=== PATIENT | female | born 1945 | race Caucasian/White ===

== ENCOUNTER 2019-01-20 14:56 | Emergency (ER) | payer OTHER, MEDICAID ==
[~2019-01-20] VITALS: Ht 167.6 cm; Wt 84.8 kg
[2019-01-20 14:57] VITALS: BP 188/91
--- NOTE | 2019-01-20 15:00 | NUR ---
BIB EMS. AAO X4. PT C/O R SHOULDER PAIN 07/10 ACHING, NONRADIATING X 30 DAYS S/P OVERUSE WITH GETTING INTO AND OUT OF WHEELCHAIR. NO OBVIOUS DEFORMITY NOTED. EQUAL BRE STRENGTH TO UPPPER EXREMITIES. CAP REFILL LESS THAN 3 SECS. ABLE TO MOVE FINGERS TO R HAND AND R ARM. HOB UP. BED SIDE RAILS UP X2. ON LOW BED POSITION, LOCKED. ER MADE AWARE OF PT STATUS.
--- NOTE | 2019-01-20 15:00 | NUR ---
PT BIBA BLS TO BED 10
--- NOTE | 2019-01-20 15:08 | NUR ---
REPORT WRITER AT BEDSIDE
[2019-01-20] MEDS ORDERED: fentaNYL 0.05 MG/ML VIAL NS ONE (15:25)
--- NOTE | 2019-01-20 17:00 | NUR ---
REPORT FROM KELSEY HOLLIS AT THIS TIME, TRANSFER OF CARE.
--- NOTE | 2019-01-20 18:44 | NUR ---
PATIENT EATING DINNER
[2019-01-20 21:11] VITALS: BP 120/72
--- NOTE | 2019-01-20 21:11 | NUR ---
Patient discharged with v/s stable. Written and verbal after care instructions given and explained. Patient alert, oriented and verbalized understanding of instructions. Ambulatory with steady gait. All questions addressed prior to discharge. ID band removed. Patient advised to follow up with PMD. Rx of LIDODERM AND TYLENOL given. Patient educated on indication of medication including possible reaction and side effects. Opportunity to ask questions provided and answered. REPORT CALLED TO ABIMBOLA RAPP AT THIS TIME.
== END 2019-01-20 21:11 ==
LOC: MED 14:56
DX: S43.101A Unspecified dislocation of right acromioclavicular joint, initial encounter (principal); E21.3 Hyperparathyroidism, unspecified; Z88.5 Allergy status to narcotic agent; Z88.6 Allergy status to analgesic agent; Z88.8 Allergy status to other drugs, medicaments and biological substances; Z98.890 Other specified postprocedural states; X58.XXXA Exposure to other specified factors, initial encounter; Y93.89 Activity, other specified; Y92.89 Other specified places as the place of occurrence of the external cause; Y99.8 Other external cause status
CPT/HCPCS: 73030; 99283; J3010; Q0092

== ENCOUNTER 2019-01-30 00:27 | Emergency (ER) | payer OTHER, MEDICAID ==
[~2019-01-30] VITALS: Ht 167.6 cm; Wt 84.8 kg
[2019-01-30 00:27] VITALS: BP 159/103
--- NOTE | 2019-01-30 00:27 | NUR ---
SUNDAY ALS TO ER BED 4
--- NOTE | 2019-01-30 00:27 | NUR ---
[facility] EMS FROM [facility] FOR RIGHT FOOT PAIN. MULTIPLE DIABET ULCERS OVER RIGHT DIGITS, LATERAL SIDE, AND UNSTAGEABLE ULCUSE WITH ESCHAR OVER HEEL. SEVERE 10/10 PAIN. TACHY AT 115. AFEBRILE. TRANSFERED FROM [facility] TO BED BY EMS AND NURSING STAFF. A&OX4 Addendum: 01/30/19 at 0322 by DERIC [facility] EMS FROM [facility] FOR RIGHT FOOT PAIN. MULTIPLE DIABET ULCERS OVER RIGHT DIGITS, LATERAL SIDE, AND UNSTAGEABLE ULCERS WITH ESCHAR OVER HEEL. SEVERE 10/10 PAIN. TACHY AT 115. AFEBRILE. TRANSFERED FROM [facility] TO BED BY EMS AND NURSING STAFF. A&OX4
--- NOTE | 2019-01-30 00:35 | NUR ---
Patient being evaluated by physician at bedside.
[2019-01-30] MEDS ORDERED: traMADol 50 MG TAB PO ONE ×2 (00:45→01:25)
[2019-01-30] MEDS ORDERED: CLINDAMYCIN 150 MG CAP PO ONE (00:45)
[2019-01-30] MEDS ORDERED: SULFAMETH/TRIMETH DS 800/160MG 1 TAB PO ONE (00:45)
--- NOTE | 2019-01-30 00:45 | NUR ---
73 YO F BIB EMS FROM [facility] FOR RIGHT FOOT PAIN. MULTIPLE DIABETIC ULCERS OVER RIGHT DIGITS, LATERAL SIDE, AND UNSTAGEABLE ULCER WITH ESCHAR OVER HEEL. SEVERE 10/10 PAIN. TACHY AT 115. AFEBRILE. TRANSFERED FROM [facility] TO BED BY EMS AND NURSING STAFF. -- PT APPEARS TO BE IN SEVERE PAIN. FACIAL GRIMACING. MOANING. COOPERATIVE. RESPONDS TO QUESTIONS APPROPRIATELY. HX: CVA, X2 STENTS, CATARACTS, DMII, HTN
--- NOTE | 2019-01-30 01:00 | NUR ---
TRAMADOL 100 MG PO GIVEN FOR 10/10 PAIN.
[2019-01-30 01:05] LABS: BASOPHILS % (AUTO) 0.5 % (0.0-2.0); EOSINOPHILS # (AUTO) 0.1 K/uL (0-0.4); EOSINOPHILS % (AUTO) 0.6 % (0.0-4.0); HEMATOCRIT 38.1 % (36-48); HEMOGLOBIN 12.7 g/dL (12.0-16.0); LYMPHOCYTES # (AUTO) 1.4 K/uL (2.5-16.5); LYMPHOCYTES % (AUTO) 16.4 % (20.5-51.1); MEAN CORPUSCULAR HEMOGLOBIN 30 pg (27-31); MEAN CORPUSCULAR HGB CONC 33 g/dL (33-37); MEAN CORPUSCULAR VOLUME 89.4 fL (80-94); MONOCYTES # (AUTO) 0.8 K/uL (0.8-1.0); MONOCYTES % (AUTO) 9.2 % (1.7-9.3); NEUTROPHILS # (AUTO) 6.5 K/uL (1.8-7.7); NEUTROPHILS % (AUTO) 73.3 % (42.2-75.2); PLATELET COUNT (AUTO) 182 K/uL (140-450); RED BLOOD CELL COUNT(AUTO) 4.26 MIL/uL (4.20-5.40); RED CELL DISTRIBUTION WIDTH 13.7 % (11.6-13.7); WHITE BLOOD COUNT (AUTO) 8.8 K/uL (4.8-10.8)
[2019-01-30 01:31] LABS: APPEARANCE,URINE CLEAR (CLEAR); BILIRUBIN,URINE NEGATIVE (NEGATIVE); BLOOD, URINE NEGATIVE (NEGATIVE); COLOR,URINE YELLOW (YELLOW); LEUKOCYTE ESTERASE ,URINE NEGATIVE (NEGATIVE); NITRITE, URINE NEGATIVE (NEGATIVE); UGLUCOSE 3+ (NEGATIVE)
[2019-01-30 01:32] LABS: ALBUMIN 2.7 g/dL (3.4-5.0); ANION GAP 13.6 (8-16); ASPARTATE AMINOTRANSFERASE 17 U/L (15-37); CARBON DIOXIDE 25.5 mmol/L (21-32); CHLORIDE 97 mmol/L (98-107); CREATININE 1.4 mg/dL (0.6-1.3); POTASSIUM 5.1 mmol/L (3.5-5.1); SODIUM SERUM 131 mmol/L (136-145); TOTAL BILIRUBIN 0.2 mg/dL (0.0-1.0); UREA NITROGEN, BLOOD 45 mg/dL (7-18)
[2019-01-30 01:36] LABS: GLUCOSE 445 mg/dL (74-106)
[2019-01-30] MEDS ORDERED: INSULIN NPH HUMAN ISOPHANE 100 UNIT/ML VIAL SUBQ ONE ×2 (01:40→02:40)
[2019-01-30 01:53] LABS: RBC,URINE 0-5 /HPF (0-5); WBC,URINE 0-5 /HPF (0-5)
[2019-01-30] MEDS ORDERED: fentaNYL 0.05 MG/ML VIAL IVP ONE (02:40)
[2019-01-30] MEDS ORDERED: NACL 0.9% 1,000 ML IV ONE (02:40)
--- NOTE | 2019-01-30 03:00 | NUR ---
TRAMADOL SEMI-EFFECTIVE. PT C/O 05/10 PAIN. 0.05 MG FENTANYL IVP GIVEN.
--- NOTE | 2019-01-30 04:00 | NUR ---
PT REPORTS ZERO PAIN.
[2019-01-30] MEDS ORDERED: hydrALAZINE 20 MG/ML VIAL IVP ONE (04:05)
--- NOTE | 2019-01-30 04:10 | NUR ---
PT ULCERS COVERED WITH NON ADHERENT DRESSINGS THEN FOOT WRAPPED WITH ROLLER GAUZE
--- NOTE | 2019-01-30 04:33 | NUR ---
Patient discharged with v/s stable. Written and verbal after care instructions given and explained. Patient verbalized understanding. [facility] with to [facility]. All questions addressed prior to discharge. Advised to continue taking antibiotics as prescribed by PMD follow up with wound care team tomorrow and to return to ER if symptoms worsen.
[2019-01-30 05:58] VITALS: BP 170/108
== END 2019-01-30 04:33 ==
LOC: MED 00:27
DX: E11.621 Type 2 diabetes mellitus with foot ulcer (principal); L97.419 Non-pressure chronic ulcer of right heel and midfoot with unspecified severity; Z88.5 Allergy status to narcotic agent; Z88.1 Allergy status to other antibiotic agents; Z88.8 Allergy status to other drugs, medicaments and biological substances; Z88.6 Allergy status to analgesic agent
CPT/HCPCS: 36415; 80053; 81001; 82948; 83605; 85025; 87040; 87086; 96361; 96374; 96375; 99284; J0360; J3010; J7030

== ENCOUNTER 2019-02-09 05:39 | Emergency (ER) | payer OTHER, MEDICAID ==
[~2019-02-09] VITALS: Ht 167.6 cm; Wt 88.5 kg
[2019-02-09 05:41] VITALS: BP 179/89
--- NOTE | 2019-02-09 05:47 | NUR ---
DR. DHALIWAL AT BEDSIDE FOR EVALUATION.
[2019-02-09] MEDS ORDERED: LID5T TP (05:54)
[2019-02-09] MEDS ORDERED: MAGN250T22 PO (05:54)
[2019-02-09] MEDS ORDERED: ACET-9800 PO (05:54)
[2019-02-09] MEDS ORDERED: INSU100S22 SUBQ (05:54)
[2019-02-09] MEDS ORDERED: CLOP75TA55 PO (05:54)
[2019-02-09] MEDS ORDERED: ZET10 PO (05:54)
[2019-02-09] MEDS ORDERED: VALS80TA2 PO (05:54)
[2019-02-09] MEDS ORDERED: CARV6.25 PO (05:54)
[2019-02-09] MEDS ORDERED: SEN30 PO (05:54)
[2019-02-09] MEDS ORDERED: TRAM50TA1 PO (05:54)
--- NOTE | 2019-02-09 05:57 | NUR ---
73 YO F SUNDAY FROM [facility] RETURNS TO ER C/O 07/10 RIGHT FOOT PAIN S/P VASCULAR SURGERY ON . RIGHT FOOT HAS MULTIPLE UNSTAGEABLE DIABETIC ULCERS OVER RIGHT DIGITS, LATERAL SIDE AND HEEL. PT STATES SHE CALLED 911 BECAUSE HER FACILITY ONLY GIVES HER TRAMADOL AND BECAUSE HER FOOT WAS BLEEDING. PT IS SCHEDULED TO FOLLOW UP WITH HER WOUND DOCTOR NEXT SUNDAY. WOUNDS ARE CLEAN AND DRY. NO DRAINAGE OR FOUL ODOR NOTED. VSS. PMH-- DM, HEART STENTS
[2019-02-09] MEDS ORDERED: MORPHINE SULFATE 4 MG/ML SYR IM ONE (06:10)
--- NOTE | 2019-02-09 06:20 | NUR ---
XRAY AT BEDSIDE.
--- NOTE | 2019-02-09 06:25 | NUR ---
PT RECEIVED 4 MG MORPHINE IM FOR 10/10 PAIN.
--- NOTE | 2019-02-09 07:00 | NUR ---
PT REPORTS 4/10 PAIN. MORPHINE EFFECTIVE.
--- NOTE | 2019-02-09 07:19 | NUR ---
CALLED SANDRA AT [facility] TO INFORM OF PT RETURNING TO FACILITY.
--- NOTE | 2019-02-09 07:21 | NUR ---
REPORT GIVEN TO TELMA SORENSEN.
--- NOTE | 2019-02-09 07:32 | NUR ---
NOTIFIED DR. DAVILA FOR X-RAY CRITICAL REPORT.
--- NOTE | 2019-02-09 07:35 | NUR ---
PT AWAKE, ALERT.NO SOB. BP CHECKED 184/90, HR 85, O2 SATS 97%, NOTIFIED DR. DAVILA , PER DR. DAVILA, NO MEDS YET , PT WILL GO BACK TO [facility], THEY WILL GIVE HER MEDICATION FOR HTN. WHICH COULD CAUSE HYPOTENSION.
--- NOTE | 2019-02-09 08:45 | NUR ---
PT PEED ON DIAPPER. CLEANED PT. PT TOLERATE WELL.
--- NOTE | 2019-02-09 09:39 | NUR ---
rechecked pt vitals, bp 182/89, hr 82, o2 sats 97%, rr 17. pt asymptomatic, no headache, no dizziness, no blurried vision. made aware.
--- NOTE | 2019-02-09 09:58 | NUR ---
transportation team present to bedside, discharge paper signed by patient. all personal belongings with pt. pt awake, laert. and no sob. called [facility] [phone] to give report to the RN who takes care of pt. Notified RN is busy , will call me back. left call back number.
[2019-02-09 10:01] VITALS: BP 174/82
--- NOTE | 2019-02-09 10:29 | NUR ---
called [facility] again, report given to maegan obrien. notified x-ray report( critical report) and pt's bp, maegan made aware we did not give pt medication for htn.
== END 2019-02-09 09:58 ==
LOC: MED 05:39
DX: M79.671 Pain in right foot (principal); G89.18 Other acute postprocedural pain; I10 Essential (primary) hypertension; E11.9 Type 2 diabetes mellitus without complications; Z88.6 Allergy status to analgesic agent; Z88.5 Allergy status to narcotic agent; Z88.8 Allergy status to other drugs, medicaments and biological substances; Z86.73 Personal history of transient ischemic attack (TIA), and cerebral infarction without residual deficits; Z79.4 Long term (current) use of insulin; Z79.01 Long term (current) use of anticoagulants; Z79.891 Long term (current) use of opiate analgesic; Z79.899 Other long term (current) drug therapy; Z79.1 Long term (current) use of non-steroidal anti-inflammatories (NSAID)
CPT/HCPCS: 73630; 96372; 99283; J2270; Q0092